=== PATIENT | female | born 1985 | race Caucasian/White ===

== ENCOUNTER 2017-10-26 09:33 | Emergency (ER) | payer SELFPAY ==
[~2017-10-26] VITALS: Ht 172.7 cm; Wt 87.0 kg
[~2017-10-26 09:33] MED LIST: IBUP-238 PO; PERC5TAB12 PO; PREN0.01 PO
[2017-10-26 09:35] VITALS: BP 178/106; PULSE 81; RESP 16; TEMP 97.4; O2SAT 99
[2017-10-26] MEDS ORDERED: diphenhydrAMINE HCL 50 MG/ML VIAL IV PUSH ONE (10:00)
[2017-10-26] MEDS ORDERED: PROCHLORPERAZINE INJ 10 MG/2 ML VIAL IV PUSH ONE (10:00)
[2017-10-26] MEDS ORDERED: SODIUM CHLOR 0.9% 1000 ML INJ 1,000 ML IV ONE ×2 (10:00→11:00)
--- NOTE | 2017-10-26 10:23 | PD ---
HPI . Nausea, vomiting, diarrhea and abdominal pain Chief Complaint: GI Complaint Time Seen by Provider: 09:40 Travel History International Travel<30 days: No Contact w/Intl Traveler<30days: No Traveled to known affect area: No History of Present Illness HPI Patient presents with the above chief complaint. Onset of symptoms was 6 AM. Severity is emesis 15 and diarrhea 15. Pain is rated 8/10. Associated symptoms include positive lightheadedness but no fever and no urinary tract symptoms. Context is that her son vomited during the night. She is concerned about possible food poisoning. [facility] Past Medical History Diminished Hearing: No Hypertension: Yes (DURING ) ?: Not LMP: 10/2017 : 2 Para: 1 Miscarriage: 1 Social History Alcohol Use: No Tobacco Use: No Substance Use: No Allergies-Medications (Allergen,Severity, Reaction): Coded Allergies: No Known Allergies (Verified Adverse Reaction, Unknown, 10/26/17) Reported Meds & Prescriptions Reported Meds & Active Scripts Active No Active Prescriptions or Reported Medications Review of Systems Except as stated in HPI: all other systems reviewed are Neg General / Constitutional: No: Fever, Chills HENT: Positive: Lightheadedness Gastrointestinal: Positive: Nausea, Vomiting, Diarrhea, Abdominal Pain Genitourinary: No: Urgency, Frequency, Dysuria Physical Exam Narrative Vital Signs Date Time Temp Pulse Resp B/P (MAP) Pulse Ox O2 Delivery O2 Flow Rate FiO2 10/26/17 09:35 97.4 81 16 178/106 (130) 99 GENERAL: Awake and alert and in no acute distress. SKIN: warm/dry. Normal color and turgor. HEAD: Normocephalic. Atraumatic. EYES: Pupils equal and round. No scleral icterus. No injection or drainage. ENT: No nasal bleeding or discharge. Mucous membranes pink and moist. NECK: Trachea midline. Full range of motion without pain.. CARDIOVASCULAR: Regular rate and rhythm. Heart sounds normal. RESPIRATORY: No accessory muscle use. Clear to auscultation. Breath sounds equal bilaterally. GASTROINTESTINAL: Abdomen soft. Nontender. Bowel sounds present. Nondistended. MUSCULOSKELETAL: No obvious deformities. NEUROLOGICAL: Awake and alert. No obvious cranial nerve deficits. Motor grossly within normal limits. Normal speech. PSYCHIATRIC: Appropriate mood and affect; insight and judgment normal. Data Data Last Documented VS Vital Signs Date Time Temp Pulse Resp B/P (MAP) Pulse Ox O2 Delivery O2 Flow Rate FiO2 10/26/17 11:00 68 18 158/91 (113) 98 Room Air 10/26/17 09:35 97.4 Orders Orders ^ Saline Lock (10/26/17 09:55) Diphenhydramine Inj (Benadryl Inj) (10/26/17 10:00) Prochlorperazine Inj (Compazine Inj) (10/26/17 10:00) Sodium Chlor 0.9% 1000 Ml Inj (Ns 1000 M (10/26/17 10:00) Sodium Chlor 0.9% 1000 Ml Inj (Ns 1000 M (10/26/17 11:00) MDM Medical Decision Making Medical Screen Exam Complete: Yes Emergency Medical Condition: Yes Differential Diagnosis Differential diagnosis includes but is not limited to viral gastritis, food poisoning, pancreatitis, pneumonia, hepatitis, acute coronary syndrome, Narrative Course This patient presents with nausea, vomiting, diarrhea and abdominal pain. She has a benign abdominal exam. She is hemodynamically stable. She will be treated with IV fluids and IV Compazine and Benadryl. She will then be reassessed. Following the first liter of IV fluid, the patient reported continued nausea. She has been given a second liter of IV fluid and is now sound asleep. Diagnosis Primary Impression: Gastroenteritis Additional Impression: Abdominal pain Qualified Codes: R10.84 - Generalized abdominal pain Patient Instructions: Gastroenteritis (DC), General Instructions Scripts No Active Prescriptions or Reported Meds Disposition: 01 DISCHARGE HOME Condition: Stable Pia Angelo MD October 26, 2017 10:23
[2017-10-26 11:00] VITALS: BP 158/91; PULSE 68; RESP 18; O2SAT 98
[2017-10-26 12:36] VITALS: BP 172/94; PULSE 95; RESP 18; O2SAT 99
== END 2017-10-26 12:37 | disposition home or self-care (01) ==
LOC: NEPD 09:33
DX: K52.9 Noninfective gastroenteritis and colitis, unspecified (principal); R10.84 Generalized abdominal pain
CPT/HCPCS: 96374; 96375; 99284; J0780; J1200; J7030